=== PATIENT | male | born 1955 | race Caucasian/White ===

== ENCOUNTER 2017-06-13 07:20 | Day surgery (SDC) | payer BC ==
[2017-06-12 13:32] VITALS: BMI 25.8
[2017-06-13] MEDS ORDERED: LIDOCAINE HCL/PF 2% SDV 5ML VIAL ONE (07:51)
[2017-06-13] MEDS ORDERED: PROPOFOL 20 ML ONE ×4 (07:52)
[2017-06-13 08:41] VITALS: PULSE 62
[2017-06-13 09:23] VITALS: BP 124/75; TEMP 98.2
--- NOTE | 2017-06-16 15:08 | PATH ---
Surgical Pathology Report Patient Name: AARON FRANCO [facility]. Rec. #: [id number] /Age/Gender: 1955 (Age: 61) / M Account: [id number] Location: U-ENDOSCOPY Taken: 06/13/2017 Received: 06/13/2017 Reported: 06/16/2017 Physicians: Palmer Newman M.D. Specimen(s) Received A: BX DUODENUM B: BX ANTRUM C: BX MID-ESOPHAGUS Clinical History Preoperative diagnosis: Epigastric pain, dysphagia Postoperative diagnosis: Gastric ulcer, gastritis Final Diagnosis A. DUODENUM, SECOND PORTION AND BULB, BIOPSY: DUODENAL MUCOSA WITHOUT SIGNIFICANT PATHOLOGIC FINDINGS. B. STOMACH, ANTRUM, BIOPSY: GASTRIC ANTRAL MUCOSA WITH MILD CHRONIC GASTRITIS. IMMUNOHISTOCHEMICAL STAIN FOR H. PYLORI IS NEGATIVE. C. DISTAL AND MID ESOPHAGUS: SQUAMOUS MUCOSA WITH VASCULAR CONGESTION AND MODERATE TO SEVERE REFLUX TYPE ESOPHAGITIS. NO COLUMNAR MUCOSA, INTESTINAL METAPLASIA, OR DYSPLASIA IDENTIFIED. Electronically Signed Jayashree Lucero M.D. Gross Description A. Received in formalin, labeled "biopsy second portion of duodenum and duodenal bulb" are 3 mendez, irregular portions of soft tissue ranging from 0.3-0.4 cm. in greatest dimension. The specimens are submitted in toto in one cassette. B. Received in formalin, labeled "biopsy antrum" are 2 mendez, irregular portions of soft tissue averaging 0.3 cm. in greatest dimension. The specimens are submitted in toto in one cassette. C. Received in formalin, labeled "biopsy distal and mid esophagus" are 3 mendez, irregular portions of soft tissue ranging from 0.3-0.7 cm. in greatest dimension. The specimens are submitted in toto in one cassette. 06/13/2017 saudi06/13/2017
== END 2017-06-13 09:27 | disposition home or self-care (01) ==
LOC: JASU-ENDO 07:20
PROVIDERS: ATTEND Internal Medicine Gastroenterology
PROC: 0DB68ZX Excision of Stomach, Via Natural or Artificial Opening Endoscopic, Diagnostic (ICD-10-PCS; 2017-06-13)
PROC: 0DB28ZX Excision of Middle Esophagus, Via Natural or Artificial Opening Endoscopic, Diagnostic (ICD-10-PCS; 2017-06-13)
PROC: 0DB38ZX Excision of Lower Esophagus, Via Natural or Artificial Opening Endoscopic, Diagnostic (ICD-10-PCS; 2017-06-13)
PROC: 0DB98ZX Excision of Duodenum, Via Natural or Artificial Opening Endoscopic, Diagnostic (ICD-10-PCS; principal; 2017-06-13 08:00)
DX: K25.9 Gastric ulcer, unspecified as acute or chronic, without hemorrhage or perforation (principal); K21.9 Gastro-esophageal reflux disease without esophagitis
CPT/HCPCS: 88305-TC; 88342-TC

== ENCOUNTER 2018-01-28 08:59 | Emergency (ER) | payer OTHER, BC ==
[2018-01-28 09:04] VITALS: BP 122/66; PULSE 76; TEMP 98.6; BMI 25.7
--- NOTE | 2018-01-28 09:22 | PDOC ---
History of Present Illness - General Chief Complaint: Pain, Acute Stated Complaint: RIGHT KNEE PAIN Time Seen by Provider: 01/28/18 09:21 - History of Present Illness Initial Comments: 01/28/18 10:44 Chief complaint: Right knee pain History of present illness: Tripped at work yesterday, stumbled but did not fall , twisted right knee. Pain medially, especially with weightbearing and rotation. Review of systems: No other injuries including pain or injuries to the head neck chest abdomen spine or other extremities. No distal numbness tingling pain or weakness in the lower leg Past medical history: Minor knee injury several years ago, no residual, no surgery. Social/family history reviewed and noncontributory Physical exam: Alert oriented well-developed well-nourished no acute distress cooperative Afebrile vital signs normal. No sign of injury to the head neck chest abdomen spine or pelvis. Right knee: No deformity, erythema, warmth, swelling, or effusion. Patella and patellar retinaculum intact and nontender. Straight leg raising intact. No limited range of motion. Mild tenderness over the MCL without laxity. LCL normal. Lockman negative. Paulino negative. X-ray: Negative Impression: Minor knee sprain Plan: Rest, ice, knee immobilizer, and orthopedic follow-up if no improvement. X -rays were furnished. Patient has outside orthopedist and will follow up no improvement. Advil as tolerated because of stomach issues. Adequately ambulatory and in no significant pain upon discharge to follow-up as directed Past History - Past Medical History Allergies/Adverse Reactions: Allergies Allergy/AdvReac Type Severity Reaction Status Date / Time amoxicillin [From Augmentin] Allergy Verified 01/28/18 09:01 clavulanic acid Allergy Verified 01/28/18 09:01 [From Augmentin] Home Medications: Ambulatory Orders NK [No Known Home Medication] 01/28/18 Anemia: No Asthma: No Cancer: No COPD: No DVT: No - Suicide/Smoking/Psychosocial Hx Smoking History: Never smoked Have you smoked in the past 12 months: No Hx Alcohol Use: No Drug/Substance Use Hx: No Substance Use Type: None *Physical Exam - Vital Signs Last Vital Signs Temp Pulse Resp BP Pulse Ox 98.6 F 76 16 122/66 98 01/28/18 09:00 01/28/18 09:00 01/28/18 09:00 01/28/18 09:00 01/28/18 09:00 *DC/Admit/Observation/Transfer Diagnosis at time of Disposition: Knee MCL sprain Qualifiers: Encounter type: initial encounter Laterality: right Qualified Code(s): S83.411A - Sprain of medial collateral ligament of right knee, initial encounter - Discharge Dispostion Disposition: HOME Condition at time of disposition: Stable Decision to Admit order: No - Referrals Referrals: Silverio Hilario [Primary Care Provider] - - Patient Instructions Printed Discharge Instructions: DI for Knee Sprain, How to Use a Knee Immobilizer Additional Instructions: Rest, ice, knee immobilizer, Advil or Motrin as tolerated Recheck communication specialist one-week for further evaluation and treatment, as well as exercise recommendations. - Post Discharge Activity Forms/Work/School Notes: Back to Work
== END 2018-01-28 10:36 | disposition home or self-care (01) ==
LOC: FER 08:59
DX: S83.411A Sprain of medial collateral ligament of right knee, initial encounter (principal); X58.XXXA Exposure to other specified factors, initial encounter; Y93.89 Activity, other specified; Y92.9 Unspecified place or not applicable
CPT/HCPCS: 73560-TC-RT-FY; 99283-25

== ENCOUNTER 2020-12-07 14:58 | Emergency (ER) | payer BC ==
[2020-12-07 15:15] VITALS: TEMP 99.2; BMI 25.1
[2020-12-07 17:19] LABS: BASO % 0.9 % (0-2.0); EOS % 3.2 % (0-4.5); HEMATOCRIT 45.4 % (35.4-49); HEMOGLOBIN 15.3 GM/dl (11.7-16.9); LYMPH % 25.3 % (8-40); MCH 30.9 pg (25.7-33.7); MCHC 33.7 g/dl (32.0-35.9); MEAN CELL VOLUME 91.6 fl (80-96); MEAN PLT VOLUME 11.4 fl (7.5-11.1); MONO % 6.8 % (3.8-10.2); NEUT % 63.8 % (42.8-82.8); PLATELET COUNT 124 10^3/uL (134-434); RBC 4.96 M/mm3 (4.00-5.60); RDW 12.7 % (11.9-15.9); WHITE BLOOD COUNT 6.9 K/mm3 (4.0-10.8)
[2020-12-07 17:28] LABS: ACTIVATED PTT 38.3 SECONDS (25.2-36.5)
[2020-12-07 17:28] LABS: ALK PHOS 44 U/L (45-117); ANION GAP 9 MMOL/L (8-16); BILIRUBIN,TOTAL 0.6 mg/dl (0.2-1); CALCIUM 8.9 mg/dl (8.5-10); CHLORIDE 100 mmol/L (98-107); CO2 25 mmol/L (21-32); GLUCOSE,RANDOM 102 mg/dl (74-106); SGOT/AST 14 U/L (15-37); SGPT/ALT 18 U/L (13-61); SODIUM 134 mmol/L (136-145); TOT PROT 6.7 g/dl (6.4-8.2)
[2020-12-07 17:32] LABS: INR 1.55 (0.82-1.09); PROTHROMBIN TIME (PATIENT) 16.9 SEC (10.2-13.0)
[2020-12-07 21:24] VITALS: BP 124/79; PULSE 85
== END 2020-12-07 20:58 | disposition left against medical advice (07) ==
LOC: FER 14:58
DX: I26.99 Other pulmonary embolism without acute cor pulmonale (principal)
CPT/HCPCS: 36415; 71275-TC; 80053; 84484; 85025; 85610; 85730; 93005; 99285-25; Q9967

== ENCOUNTER 2022-04-12 12:25 | Emergency (ER) | payer BC ==
[2022-04-12 12:36] VITALS: TEMP 97.9; BMI 20.1
[2022-04-12 12:56] VITALS: RESP 20
[2022-04-12 13:11] LABS: BASO % 0.8 % (0-2.0); EOS % 2.1 % (0-4.5); HEMATOCRIT 46.8 % (35.4-49); HEMOGLOBIN 15.6 GM/dL (11.7-16.9); LYMPH % 26.7 % (8-40); MCH 30.4 pg (25.7-33.7); MCHC 33.4 g/dl (32.0-35.9); MEAN CELL VOLUME 90.9 fl (80-96); MEAN PLT VOLUME 10.9 fl (7.5-11.1); MONO % 7.3 % (3.8-10.2); NEUT % 63.1 % (42.8-82.8); PLATELET COUNT 201 10^3/uL (134-434); RBC 5.15 M/mm3 (4.00-5.60); RDW 13.6 % (11.9-15.9); WHITE BLOOD COUNT 7.3 K/mm3 (4.0-10.0)
[2022-04-12 13:28] LABS: CALCIUM 9.2 mg/dL (8.5-10.1)
[2022-04-12 13:29] LABS: ALBUMIN 3.9 g/dl (3.4-5.0)
[2022-04-12 13:33] LABS: BILIRUBIN,TOTAL 0.6 mg/dL (0.2-1); TOT PROT 7.1 g/dl (6.4-8.2)
[2022-04-12 14:37] VITALS: BP 123/73; PULSE 70
[2022-04-12] MEDS ORDERED: DEXAMETHASONE SOD PHOSPHATE 10 MG/1 ML VIAL IVPUSH ONE (16:56)
[2022-04-12] MEDS ORDERED: DEXAMETHASONE 4 MG TABLET (FP) PO ONE (16:59)
[2022-04-12] MEDS ORDERED: DEXAMETHASONE 4 MG TABLET (FP) ONE (17:17)
== END 2022-04-12 19:35 | disposition home or self-care (01) ==
LOC: JER 12:25
DX: J98.01 Acute bronchospasm (principal); J06.9 Acute upper respiratory infection, unspecified
CPT/HCPCS: 36415; 71275-TC; 80053; 84484; 85025; 85379; 93005; 93010; 99285-25; Q9967

== ENCOUNTER 2022-09-11 08:21 | Emergency (ER) | payer BC ==
[2022-09-11] MEDS ORDERED: ALBUTEROL SO4 2.5/IPRATROPIUM 0.5 INH SOL 3 ML VIAL.NEB. NEB ONE ×2 (08:31→08:34)
[2022-09-11 08:45] VITALS: BP 130/81; PULSE 89; RESP 18; TEMP 99.1; BMI 25.1
== END 2022-09-11 10:30 | disposition home or self-care (01) ==
LOC: FER 08:21
PROC: 3E0F7GC Introduction of Other Therapeutic Substance into Respiratory Tract, Via Natural or Artificial Opening (ICD-10-PCS; principal; 2022-09-11)
DX: R05.9 Cough, unspecified (principal); R50.9 Fever, unspecified; R09.81 Nasal congestion; J40 Bronchitis, not specified as acute or chronic; Z20.822 Contact with and (suspected) exposure to COVID-19
CPT/HCPCS: 0241U-QW; 71045-TC-FY; 99284-25

== ENCOUNTER 2023-09-22 15:40 | Emergency (ER) | payer BC ==
[2023-09-22 15:51] VITALS: BP 126/74; PULSE 84; RESP 18; TEMP 98; BMI 25.1
[2023-09-22] MEDS ORDERED: LIDOCAINE 5% TOPICAL PATCH ONE (16:35)
[2023-09-22] MEDS ORDERED: ACETAMINOPHEN 500 MG TABLET (FP) ONE (16:35)
[2023-09-22] MEDS: ACETAMINOPHEN 500 MG TABLET (FP) PO ONE (16:36)
[2023-09-22 16:38] LABS: HEMATOCRIT 45.4 % (35.4-49); HEMOGLOBIN 15.1 G/dL (11.7-16.9); MCH 30.6 pg (25.7-33.7); MCHC 33.2 g/dl (32.0-35.9); MEAN CELL VOLUME 92.3 fl (80-96); MEAN PLT VOLUME 11.2 fl (7.5-11.1); PLATELET COUNT 121.5 10^3/uL (134-434); RBC 4.92 10^6/uL (4.00-5.60); RDW 14.3 % (11.9-15.9); WHITE BLOOD COUNT 6.2 10^3/uL (4.0-10.8)
[2023-09-22 16:50] LABS: PLATELET ESTIMATE SLT DECREASE
[2023-09-22] MEDS: LIDOCAINE 5% TOPICAL PATCH TP ONE (16:53)
[2023-09-22 16:58] LABS: ALBUMIN 4.1 g/dl (3.4-5.0); ALK PHOS 51 U/L (45-117); ANION GAP 7 mmol/L (4-13); BILIRUBIN,TOTAL 0.5 mg/dl (0.2-1); CALCIUM 9.2 mg/dl (8.5-10.1); CHLORIDE 107 mmol/L (98-107); CO2 24 mmol/L (21-32); GLUCOSE,RANDOM 103 mg/dl (74-106); POTASSIUM 4.1 mmol/L (3.5-5.1); SGOT/AST 12 U/L (15-37); SGPT/ALT 11 U/L (7-52); SODIUM 138 mmol/L (136-145); TOT PROT 6.2 g/dl (6.4-8.2)
[2023-09-22] MEDS ORDERED: LIDOCAINE PATCH REMOVAL MC SCH (22:00)
== END 2023-09-22 18:00 | disposition home or self-care (01) ==
LOC: FER 15:40
DX: M54.6 Pain in thoracic spine (principal); M54.2 Cervicalgia
CPT/HCPCS: 36415; 72050-TC-FY; 72070-TC-FY; 80053; 84484; 85027; 93005; 99285-25